=== PATIENT | male | born 1980 | race Caucasian/White ===

== ENCOUNTER 2020-11-26 05:58 | Emergency (ER) | payer OTHER ==
[~2020-11-26 05:58] MED LIST: B-6200 MG PO; BAYER CHEWABLE81 MG PO; CLEOCIN300 MG PO; COREG 6.25MG6.25 MG PO; LIPITOR10 MG PO; LIPITOR40 MG PO; NORCO 5-325 TA1 EACH PO; OSTERA TABLET1 EACH PO; VANCO 2 GR2 GM/500 M IV; VIBRAMYCIN100 MG PO; VITAMIN D400 UNIT PO
[2020-11-26 07:06] LABS: INR 1.04 (0.9-1.2); PROTHROMBIN TIME 12.9 SECONDS (11.4-13.6)
[2020-11-26 07:09] LABS: BASOPHIL 0.1 % (0-2); EOSINOPHIL 0.1 % (0-5); HCT 44.3 % (42.0-52.0); HGB 15.5 g/dl (13.2-18.0); LYMPHOCYTE 13.6 % (15-48); MCH 32.6 pg (25.0-31.0); MCV 93.1 fL (78.0-100.0); MONOCYTE 8.9 % (0-12); MPV 9.1 fL (6.0-9.5); NEUTROPHIL 76.2 % (41-80); NRBC 0; PLT 162 K/uL (150-400); RBC 4.76 M/uL (4.70-6.00); RDW 12.5 % (11.5-14.0)
[2020-11-26 07:42] LABS: ALBUMIN 3.6 g/dL (3.4-5.0); BILIRUBIN - TOTAL 0.6 mg/dL (0.2-1.0); BUN/CREAT RATIO (CALC) 13.4 RATIO; CREATININE 1.34 mg/dL (0.67-1.17); MAGNESIUM 1.9 mg/dL (1.8-2.4); POTASSIUM 3.7 mmol/L (3.5-5.1); TOTAL PROTEIN 6.6 g/dL (6.4-8.2)
[2020-11-26 10:45] LABS: BILIRUBIN NEGATIVE (NEGATIVE); BLOOD NEGATIVE Ery/uL (NEGATIVE); CLARITY CLEAR (CLEAR); COLOR YELLOW (YELLOW); GLUCOSE (U) NORMAL (NORMAL); LEUKOCYTES NEGATIVE Leu/uL (NEGATIVE); NITRITE NEGATIVE (NEGATIVE); PROTEIN NEGATIVE (NEGATIVE); SPECIFIC GRAVITY 1.015 (1.001-1.030); UROBILINOGEN 0.2 mg/dL (0.2-1.0); pH 7.5 (5.0-9.0)
== END 2020-11-26 10:54 | disposition home or self-care (01) ==
LOC: FER 05:58
PROVIDERS: Emergency Medicine
DX: R42 Dizziness and giddiness (principal); R11.2 Nausea with vomiting, unspecified; R29.700 NIHSS score 0; Z20.822 Contact with and (suspected) exposure to COVID-19
CPT/HCPCS: 36415; 70450; 70551; 80053; 81003; 82550; 83735; 84484; 85025; 85610; 93005; J2405; Q9967; U0002

== ENCOUNTER 2021-08-18 22:44 | Emergency (ER) | payer OTHER ==
[2021-08-19] MEDS ORDERED: KEFLEX250 MG PO (01:49)
[2021-08-19] MEDS ORDERED: PERCOCET 5-3251 EACH PO (01:49)
== END 2021-08-19 02:19 | disposition home or self-care (01) ==
LOC: FER 22:44
DX: L03.115 Cellulitis of right lower limb (principal); I89.0 Lymphedema, not elsewhere classified; I25.2 Old myocardial infarction; E78.5 Hyperlipidemia, unspecified; Z79.82 Long term (current) use of aspirin; Z79.899 Other long term (current) drug therapy
CPT/HCPCS: 93971

== ENCOUNTER 2021-09-21 08:25 | Emergency (ER) | payer OTHER ==
[~2021-09-21 08:25] MED LIST changes: +KEFLEX250 MG PO; +PERCOCET 5-3251 EACH PO
== END 2021-09-21 11:15 | disposition home or self-care (01) ==
LOC: FER 08:25
DX: R05.9 Cough, unspecified (principal); R06.2 Wheezing; I25.2 Old myocardial infarction
CPT/HCPCS: 71045